=== PATIENT | female | born 1940 | race Caucasian/White ===

== ENCOUNTER → 2018-04-16 | Outpatient (CLI) | payer MEDICARE, BC ==
[~2018-04-16] MED LIST: ABILIFY5 MG PO; AMBIEN10 MG PO; ATORVASTATIN CA20 MG PO; BUPROPION HCL200 MG PO; COZAAR25 MG PO; DIAZEPAM10 MG PO; DIAZEPAM5 MG PO; DICLOFENAC SODI50 MG PO; GABAPENTIN400 MG PO; HYDROCHLOROTH12.5 M1 PO; LIPITOR20 MG PO; LOSARTAN POTASS25 MG PO; LOVENOX40 MG/0.4 SQ; MIRALAX17 GM PO; MIRTAZAPINE7.5 MG PO; NORCO 5-325 TA1 EACH PO; NORCO PO; PREDNISONE20 MG; PREDNISONE5 M1; SERTRALINE HCL100 MG PO; TRAZODONE HCL50 MG PO; WELLBUTRIN100 M1 PO; Z.0.AMBIEN10 MG PO; Z.0.LIPITOR10 MG PO; Z.0.SERTRALINE HCL50 PO; ZYPREXA10 MG PO; [UNRECOGNIZED DRUG - OTHER] PO
--- NOTE | 2018-04-16 17:03 | Diagnostic Imaging Report ---
EXAM: DXA BONE DENSITY INDICATIONS: MENOPAUSAL/ HYPERPARATHYROIDISM COMPARISON: None. FINDINGS: Proximal left femur total bone mineral density (BMD) (g/cm2):0.545 Femur T-score (standard deviation relative to young adult mean BMD): -3.3 Femur Z-score (standard deviation relative to age-matched control group):-1.4 Proximal left femur neck bone mineral density (BMD) (g/cm2):0.637 Femur T-score (standard deviation relative to young adult mean BMD): -1.9 Femur Z-score (standard deviation relative to age-matched control group):0.2 Lumbar bone mineral density (BMD) (g/cm2):0.844 Lumbar T-score (standard deviation relative to young adult mean BMD): -1.8 Lumbar Z-score (standard deviation relative to age-matched control group):0.6 Change since prior exam (%): Femur:Not applicable. Spine:Not applicable. Change since oldest prior exam (%): Femur:Not applicable. Spine:Not applicable. CONCLUSION: 1. Bone mineral density in the left femur is classified as osteoporosis. Fracture risk is high. 2. Bone mineral density in the spine is classified as osteopenia. Fracture risk is increased. World Health Organization Classification: *The Z-score is provided for informational purposes. The T-score is preferable for clinical decisions. When comparing exams, a change of >4% is considered statistically significant. SUGGESTED RECOMMENDATIONS: Normal \T\ Osteopenia:Consideration should be given to use of calcium supplementation, daily multiple vitamins and adequate exercise, as preventive measures against osteoporosis, if clinically indicated. Osteoporosis \T\ Severe Osteoporosis:In addition to the above, consideration should be given to medical therapy against osteoporosis, if clinically indicated. Dennis Stevens M.D. Dictated by: Dennis Stevens M.D. on 04/16/2018 at 17:05 Electronically approved by: Dennis Stevens M.D. on 04/16/2018 at 17:05
== END ==
LOC: MAMMO 13:35
PROVIDERS: ATTEND Internal Medicine
DX: Z12.31 Encounter for screening mammogram for malignant neoplasm of breast (principal); Z78.0 Asymptomatic menopausal state; E21.3 Hyperparathyroidism, unspecified
CPT/HCPCS: 77067; 77080

== ENCOUNTER → 2020-08-30 | Outpatient (CLI) | payer MEDICARE, BC ==
--- NOTE | 2020-08-30 16:19 | Diagnostic Imaging Report ---
Exam: Bone mineral density study. History: Postmenopausal female. Comparison: 04/16/2018 Discussion: Evaluation of the left hip and lumbar spine was performed utilizing DEXA Hologic bone densitometer. The study is technically adequate. The patient's fracture risk is compared to an age-matched control. Left femoral total bone mineral density: 0.613 g/cm2, T-score is -2.7, Z-score is -0.7. This has increased 12.5% compared to prior exam. Lumbar spine total bone mineral density: 0.877 gm/cm2, T-score is -1.5, Z-score is 1. This has increased 3.9% compared to prior exam. Impression: Bone mineralization by WHO Classification using T score is osteoporosis, fracture risk is high, treatment is advised. <T score: NL = -1 or higher Osteopenia = -1 to -2.5 Osteoporosis = -2.5 or lower Z score: < - 1.5 concerning for path> Recommendations: Medical evaluation for secondary causes of low bone mineral density may be appropriate. Correlate clinically for the necessity and timing of the next bone mineral density study. National Osteoporosis Foundation recommendations: Initiate therapy to reduce fracture risk in postmenopausal women with -BMD t-scores below -2 by central DXA with no risk factors -BMD t-scores below -1.5 by central DXA with one or more risk factors (first deg relative with hip fracture, prior personal fracture, low body weight, smoking) -A prior vertebral or hip fracture AACE (Clinical Endocrinology) recommends treating the following: Postmenopausal women who have osteoporosis as diagnosed by fragility fractures or t scores -2.5 or below Postmenopausal women who have risk factors (including fh of hip fracture, low body weight, smoking, risk of falling, high bone turnover, advancing age) and borderline low BMD T scores of -1.5 or below Adequate intake of calcium (at least 1200mg/day) and vitamin D (400-800 IU/day). Regular weight bearing and muscle - strengthening exercises Avoid smoking and excessive alcohol Signed by: Ramesh Lebron on 08/30/2020 4:16 PM
== END ==
LOC: MAMMO 14:19
PROVIDERS: ATTEND Internal Medicine
DX: Z12.31 Encounter for screening mammogram for malignant neoplasm of breast (principal); M85.80 Other specified disorders of bone density and structure, unspecified site
CPT/HCPCS: 77067; 77080